=== PATIENT | female | born 1930 | race African-American/Black ===

== ENCOUNTER 2017-01-03 12:30 | Emergency (ER) | payer MEDICARE, MEDICAID ==
[~2017-01-03] VITALS: Ht 160 cm; Wt 72.0 kg
[~2017-01-03 12:30] MED LIST: AMLODIPINE5 MG PO; AMOX/K CLAV875 M1 PO; AMOXICILLIN/CL875 MG OR; AMOXICILLIN500 MG OR; ANTI-FUNGAL12 EX; ASPIRIN LOW DOS81 MG PO; AUGMENTIN875TAB OR; BENTYL10 MG PO; CIPRO500 MG PO; FLONASE NASAL50 MCG; GLUCOPHAGE500 MG PO; HYCOTUSS EXP1 ML OR; LISINOPRIL10 MG PO; LISINOPRIL5 MG PO; LOSARTAN POT25 MG PO; MEDDOSEPAK OR; METFORMIN1000 MG PO; METFORMIN500 M1 PO; METFORMIN500 M2 PO; METFORMIN500 MG PO; NEXIUM40 M1 PO; OMEPRAZOLE40 MG PO; PRAVASTATIN SOD10 MG PO; PROTONIX20 M1 PO; TESSALON200 MG PO
[2017-01-03] MEDS ORDERED: NAPROSYN500 MG PO (14:15)
[2017-01-03 14:20] VITALS: BP 151/81
== END 2017-01-03 14:20 | disposition home or self-care (01) ==
LOC: ED 12:30
DX: S16.1XXA Strain of muscle, fascia and tendon at neck level, initial encounter (principal); Y92.009 Unspecified place in unspecified non-institutional (private) residence as the place of occurrence of the external cause

== ENCOUNTER 2017-02-08 10:53 | Emergency (ER) | payer MEDICARE, MEDICAID ==
[~2017-02-08] VITALS: Ht 160 cm; Wt 157.0 kg
[~2017-02-08 10:53] MED LIST changes: +NAPROSYN500 MG PO
[2017-02-08] MEDS ORDERED: AMLODIPINE BESYL5 MG PO (11:20)
[2017-02-08] MEDS ORDERED: LEVOTHYROXIN50 MCG PO (11:20)
[2017-02-08] MEDS ORDERED: MELOXICAM7.5 MG PO (11:21)
[2017-02-08] MEDS ORDERED: MAXZIDE-2537.5 MG/TA PO (11:21)
[2017-02-08] MEDS ORDERED: METFORMIN500 M2 PO (11:22)
[2017-02-08] MEDS ORDERED: ADLT ASA LOW81 MG PO (11:23)
[2017-02-08] MEDS ORDERED: PRAVASTATIN10 MG PO (11:23)
[2017-02-08] MEDS ORDERED: NAPROSYN500 MG PO (12:03)
[2017-02-08 12:19] VITALS: BP 138/75
== END 2017-02-08 12:19 | disposition home or self-care (01) ==
LOC: ED 10:53
DX: M79.642 Pain in left hand (principal); M79.641 Pain in right hand; M25.532 Pain in left wrist; M25.531 Pain in right wrist; M25.432 Effusion, left wrist; M25.431 Effusion, right wrist; M25.442 Effusion, left hand; M25.441 Effusion, right hand

== ENCOUNTER 2017-09-05 16:58 | Emergency (ER) | payer MEDICARE, MEDICAID ==
[~2017-09-05] VITALS: Ht 160 cm; Wt 68.0 kg
[~2017-09-05 16:58] MED LIST changes: +ADLT ASA LOW81 MG PO; +AMLODIPINE BESYL5 MG PO; +LEVOTHYROXIN50 MCG PO; +MAXZIDE-2537.5 MG/TA PO; +MELOXICAM7.5 MG PO; +PRAVASTATIN10 MG PO
[2017-09-05 17:58] VITALS: BP 135/77
== END 2017-09-05 18:05 | disposition home or self-care (01) ==
LOC: ED 16:58
DX: L72.9 Follicular cyst of the skin and subcutaneous tissue, unspecified (principal); I10 Essential (primary) hypertension; J44.9 Chronic obstructive pulmonary disease, unspecified; F17.210 Nicotine dependence, cigarettes, uncomplicated

== ENCOUNTER 2018-11-13 13:38 | Emergency (ER) | payer MEDICARE, MEDICAID ==
[~2018-11-13] VITALS: Ht 160 cm; Wt 70.0 kg
[2018-11-13] MEDS ORDERED: LOSARTAN POT25 MG PO (13:52)
[2018-11-13] MEDS ORDERED: PROTONIX20 M1 PO (13:53)
[2018-11-13] MEDS ORDERED: CYCLOBENZAPR5 MG PO (14:45)
[2018-11-13 14:49] VITALS: BP 168/81
== END 2018-11-13 14:54 | disposition home or self-care (01) ==
LOC: ED 13:38
DX: S76.012A Strain of muscle, fascia and tendon of left hip, initial encounter (principal); I10 Essential (primary) hypertension; E11.9 Type 2 diabetes mellitus without complications; J44.9 Chronic obstructive pulmonary disease, unspecified; F17.200 Nicotine dependence, unspecified, uncomplicated; W19.XXXA Unspecified fall, initial encounter

== ENCOUNTER 2018-11-29 18:38 | Emergency (ER) | payer MEDICARE, MEDICAID ==
[~2018-11-29] VITALS: Ht 160 cm; Wt 68.2 kg
[~2018-11-29 18:38] MED LIST changes: +CYCLOBENZAPR5 MG PO
[2018-11-29] MEDS ORDERED: DOXYCYCL HYC100 MG PO (19:10)
[2018-11-29 19:30] VITALS: BP 151/71
== END 2018-11-29 19:30 | disposition home or self-care (01) ==
LOC: ED 18:38
DX: L03.116 Cellulitis of left lower limb (principal); I10 Essential (primary) hypertension; J44.9 Chronic obstructive pulmonary disease, unspecified; E11.9 Type 2 diabetes mellitus without complications; F17.200 Nicotine dependence, unspecified, uncomplicated; Z79.84 Long term (current) use of oral hypoglycemic drugs

== ENCOUNTER 2021-10-03 15:33 | Emergency (ER) | payer MEDICARE, MEDICAID ==
[~2021-10-03] VITALS: Ht 160 cm; Wt 73.0 kg
[~2021-10-03 15:33] MED LIST changes: +DOXYCYCL HYC100 MG PO
[2021-10-03 16:14] LABS: HEMOGLOBIN 12.3 g/dl (12.0-16.0); IMMATURE GRANULOCYTES 0.2 % (0.0-5.0); MEAN CELL VOLUME 89.6 fL CALC (80.0-100.0); MEAN CORPUSCULAR HGB CONC 32.4 g/dL CAL (32.0-36.0); NEUT# 4.95 thou/uL (2.00-7.15); RED BLOOD COUNT 4.24 mill/uL (4.20-5.60); RED CELL DISTRI WIDTH 12.9 % (11.5-15.5)
[2021-10-03 16:20] LABS: ALKALINE PHOSPHATASE 101 u/l (38-126); ANION GAP 12 (6-22 (CALC)); BILIRUBIN, TOTAL 0.5 mg/dL (0.0-1.4); BUN 13 mg/dL (8-23); BUN/CREATININE RATIO 19 (12-20 (CALC)); CARBON DIOXIDE 28 mmol/l (22-30); CHLORIDE 101 mmol/l (95-108); CREATININE 0.7 mg/dL (0.5-1.0); GFR > 60 ML/MIN (>=60 (CALC)); GFR FOR AFR.AMER. > 60 ML/MIN (>=60 (CALC)); SGOT/AST 20 u/l (9-36); SODIUM 138 mmol/l (137-146)
[2021-10-03 16:21] LABS: POTASSIUM 3.4 mmol/l (3.5-5.1)
[2021-10-03 16:32] LABS: INTERNATIONAL NORMALIZED RATIO 0.9 RATIO (0.7-1.3); PROTHROMBIN TIME 9.6 SECONDS (9.0-12.5)
[2021-10-03 17:16] LABS: URINE BILIRUBIN - DIPSTICK NEGATIVE (NEGATIVE); URINE BLOOD DIPSTICK NEGATIVE (NEGATIVE); URINE COLOR YELLOW; URINE GLUCOSE - DIPSTICK NEGATIVE (NEGATIVE); URINE KETONE NEGATIVE (NEGATIVE); URINE LEUK ESTERASE NEGATIVE (NEGATIVE); URINE PROTEIN - DIPSTICK NEGATIVE (NEG-TRACE); URINE SPECIFIC GRAVITY 1.025
[2021-10-03 17:17] LABS: URINE NITRITE - DIPSTICK NEGATIVE (Negative)
[2021-10-03] MEDS ORDERED: MEDDOSEPAK PO (17:39)
[2021-10-03] MEDS ORDERED: TRAMADOL HCL50 MG PO (17:39)
[2021-10-03 18:06] VITALS: BP 158/71
== END 2021-10-03 18:09 | disposition home or self-care (01) ==
LOC: ED 15:33
PROVIDERS: Nurse Practitioner
DX: M71.21 Synovial cyst of popliteal space [Baker], right knee (principal); M17.0 Bilateral primary osteoarthritis of knee; I10 Essential (primary) hypertension; J44.9 Chronic obstructive pulmonary disease, unspecified; E11.9 Type 2 diabetes mellitus without complications; F17.200 Nicotine dependence, unspecified, uncomplicated; Z79.84 Long term (current) use of oral hypoglycemic drugs